=== PATIENT | male | born 1945 | race Caucasian/White ===

== ENCOUNTER → 2016-11-30 | Outpatient (CLI) | payer MEDICARE, OTHER ==
[2015-09-18 01:06] VITALS: BP 129/65
--- NOTE | 2016-11-30 11:43 | RAD ---
Indication cough. PA and lateral views of the chest were obtained. Comparison is made to a study 09/17/2015. Note is made of several CT examinations of the chest the most recent being 06/30/2016. Background chronic changes are noted. Parenchymal opacities in the lower lobes are compatible with scarring as suggested on the CT examination June 30, 2016. Superimposed inflammatory process in the lower lobes cannot be entirely excluded. There is no significant pleural fluid. There is no pneumothorax. Heart size and pulmonary vessels are normal. IMPRESSION: Parenchymal opacities at the lung bases, left greater than right, likely reflect chronic scarring. Superimposed pneumonia is not entirely excluded but is felt less likely
== END | disposition home or self-care (01) ==
LOC: DXRAD 11:09
PROVIDERS: ATTEND Internal Medicine Pulmonary Disease
DX: J18.9 Pneumonia, unspecified organism (principal)
CPT/HCPCS: 71020

== ENCOUNTER → 2017-03-15 | Outpatient (CLI) | payer MEDICARE, OTHER ==
[2015-09-18 01:06] VITALS: BP 129/65
--- NOTE | 2017-03-15 14:57 | RAD ---
Chest radiograph 03/15/2017 at 1445 hours Indication: COPD. Cardiac monitoring implant Comparison: Chest radiograph 11/30/2016 Technique: PA and lateral views of the chest are provided. Findings: Cardiomediastinal silhouette is borderline enlarged. Left-sided cardiac monitoring device is present. Interstitial opacities at the lung bases, likely reflect chronic interstitial lung disease given similar appearance since 03/16/2014. Thinning of the pulmonary architecture in the upper lobes is suggestive of emphysema. No pneumothorax or pulmonary vascular congestion. No new airspace disease. Impression: Chronic bibasilar interstitial opacities suggestive of interstitial lung disease (interstitial pulmonary fibrosis). This limits evaluation for airspace disease, however there is no significant consolidation identified.
== END | disposition home or self-care (01) ==
LOC: DXRAD 14:36
PROVIDERS: ATTEND Internal Medicine Pulmonary Disease
DX: J44.9 Chronic obstructive pulmonary disease, unspecified (principal); Z95.818 Presence of other cardiac implants and grafts
CPT/HCPCS: 71020

== ENCOUNTER → 2018-01-03 | Outpatient (CLI) | payer MEDICARE, OTHER ==
[2015-09-18 01:06] VITALS: BP 129/65
--- NOTE | 2018-01-03 16:52 | RAD ---
PA and lateral chest radiograph. History: Shortness of air. Comparison: March 15, 2017. Findings: Cardiac loop recorder is seen. Cardiac silhouette appears mildly enlarged. Diffusely increased interstitial markings, especially in the lower lung bunn, are compatible with pulmonary fibrosis; there is likely little interval change. No acute consolidation is identified. Impression: 1. Pulmonary fibrosis. 2. No acute infiltrate is identified. Electronically signed by: Martin Carpenter MD (01/03/2018 4:48 PM) [place] [id number]
== END | disposition home or self-care (01) ==
LOC: DXRAD 13:37
PROVIDERS: ATTEND Internal Medicine Pulmonary Disease
DX: J84.10 Pulmonary fibrosis, unspecified (principal)
CPT/HCPCS: 71046

== ENCOUNTER → 2019-01-10 | Outpatient (CLI) | payer MEDICARE, OTHER ==
[2015-09-18 01:06] VITALS: BP 129/65
--- NOTE | 2019-01-10 17:19 | RAD ---
Chest, 2 views, 01/10/2019: HISTORY: Chronic respiratory failure Comparison is made to a study from 01/03/2018. The heart is within normal limits in size. There are extensive predominantly interstitial opacities in the lungs which are most prominent in the lung bases. These are unchanged and are compatible with a chronic fibrosing process. Emphysematous changes are present in the upper lobes. No new pulmonary abnormality is seen. There is no evidence of pleural fluid. Moderate hypertrophic degenerative change is present in the spine. IMPRESSION: 1. Emphysema with extensive pulmonary fibrosis. 2. No significant change since 01/03/2018. Electronically signed by: Erickson Vaughn MD (01/10/2019 5:16 PM) [facility]
== END | disposition home or self-care (01) ==
LOC: DXRAD 14:11
PROVIDERS: ATTEND Internal Medicine Pulmonary Disease
DX: J96.10 Chronic respiratory failure, unspecified whether with hypoxia or hypercapnia (principal); J43.9 Emphysema, unspecified; J84.10 Pulmonary fibrosis, unspecified
CPT/HCPCS: 71046

== ENCOUNTER → 2019-07-28 | Outpatient (CLI) | payer MEDICARE, OTHER ==
[2015-09-18 01:06] VITALS: BP 129/65
--- NOTE | 2019-07-28 15:35 | RAD ---
PQRS Compliance Statement: One or more of the following individualized dose reduction techniques were utilized for this examination: 1. Automated exposure control 2. Adjustment of the mA and/or kV according to patient size 3. Use of iterative reconstruction technique CT CHEST WO CONTRAST 07/28/2019 10:30 AM Indication: Interstitial lung disease COMPARISON: CT chest 06/30/2016 TECHNIQUE: Multiple axial CT images of the chest were obtained without intravenous contrast. Coronal and sagittal reformats are provided. FINDINGS: Thyroid gland is normal in appearance. Paratracheal lymph node previously measured 8 mm and currently measures 10 mm (series 2, image 43) precarinal lymph node measures 12 mm by short axis, previously 9 mm. Evaluation of hilar lymphadenopathy is limited by lack of intravenous contrast. Heart size is enlarged. No pericardial effusion. Thoracic aorta is normal in course and caliber with mild to moderate calcified atheromatous plaque. Three-vessel coronary artery vascular catheter positions are present. Thoracic esophagus is normal in appearance. Mild centrilobular pulmonary emphysematous changes are identified. Lower lung zone predominant subpleural reticular interstitial changes are identified. There are are cystic changes of the lung bases suggestive of honeycombing. Mild traction bronchiectasis and bronchial wall thickening. No groundglass changes are visualized. Nodular consolidative changes noted at the left lung base measures up to 2.3 cm, increased in nodularity along the inferior component although remaining similar in size. Central airways are clear. No pleural effusions, pulmonary vascular congestion or pneumothorax. Cholelithiasis. No suspicious osseous abnormality is identified. IMPRESSION: 1. Constellation of findings most favors interstitial lung disease as may be seen with usual interstitial pneumonia/intrahepatic pulmonary fibrosis. Fibrotic NSIP may have similar appearance. 2. Increased nodular consolidative change at the left lung base measuring up to 2.3 cm. Underlying neoplastic etiology remains a differential consideration and further evaluation with 3 month follow-up chest CT or PET/CT may be of benefit. Findings overall are not significantly changed although there is more nodular thickening along the inferior margin of this area of nodular consolidation. 3. Marginal increase in mediastinal lymphadenopathy, most likely reactive. Attention on follow-up exams is recommended. Electronically signed by: Nena Goldberg MD (07/28/2019 3:32 PM) [id number]
== END | disposition home or self-care (01) ==
LOC: CT 10:13
PROVIDERS: ATTEND Internal Medicine Pulmonary Disease
DX: J43.2 Centrilobular emphysema (principal); I51.7 Cardiomegaly; I70.0 Atherosclerosis of aorta; J47.9 Bronchiectasis, uncomplicated; J92.9 Pleural plaque without asbestos; K80.80 Other cholelithiasis without obstruction; J98.4 Other disorders of lung
CPT/HCPCS: 71250